=== PATIENT | male | born 1965 | race Two or more races ===

== ENCOUNTER 2017-01-24 19:41 | Inpatient (IN) | payer OTHER ==
[~2017-01-24] VITALS: Ht 170.2 cm; Wt 86.2 kg
[~2017-01-24 19:41] MED LIST: ASPIR 8181 MG ORAL; ATORVASTATIN CA10 MG ORAL; BRILINTA90 MG PO
[2017-01-24 21:10] VITALS: BP 113/72
[2017-01-24 22:13] LABS: EOSINOPHILS % (AUTO) 0.5 % (0.0-3.0); LYMPHOCYTES % (AUTO) 11.8 % (20.0-45.0); MEAN CORPUSCULAR HEMOGLOBIN 28.5 PG (27.0-31.0); MEAN CORPUSCULAR HGB CONC 32.4 G/DL (32.0-36.0); MEAN CORPUSCULAR VOLUME 88 FL (80-99); MEAN PLATELET VOLUME 6.8 FL (6.5-10.1); MONOCYTES % (AUTO) 5.1 % (1.0-10.0); NEUTROPHILS % (AUTO) 81.6 % (45.0-75.0); PLATELET COUNT 286 K/UL (150-450); RED BLOOD COUNT 4.32 M/UL (4.70-6.10); RED CELL DISTRIBUTION WIDTH 12.2 % (11.6-14.8); WHITE BLOOD COUNT 11.4 K/UL (4.8-10.8)
[2017-01-24 22:25] VITALS: BP 121/69
[2017-01-24 22:26] VITALS: BP 116/74
[2017-01-24 22:27] VITALS: BP 113/71
[2017-01-24 22:28] LABS: PROTHROMBIN TIME 10.4 SEC (9.30-11.50)
[2017-01-24 22:40] LABS: TROPONIN I < 0.30 ng/mL (<=0.30)
[2017-01-24 22:42] LABS: ALANINE AMINOTRANSFERASE 21 U/L (3-41); ALBUMIN/GLOBULIN RATIO 1.4 (1.0-2.7); ANION GAP 16 (5-15); ASPARTATE AMINO TRANSFERASE 18 U/L (5-40); CARBON DIOXIDE 23 mEQ/L (20-30); CHLORIDE 98 mEQ/L (98-107); GLOMERULAR FILTRATION RATE > 60 mL/min (>60); HEMOLYSIS 10; POTASSIUM 4.1 mEQ/L (3.4-4.9); SODIUM 137 mEQ/L (135-145); TOTAL PROTEIN 6.9 g/dL (6.6-8.7)
[2017-01-24 22:53] LABS: CKMB < 1.5 ng/mL (< 6.7)
--- NOTE | 2017-01-24 23:25 | Emergency Room Report ---
History of Present Illness General Chief Complaint: Generalized Weakness Source: Patient Present Illness HPI 51-year-old male presents ED for evaluation. Per EMS patient came from ENT office after having cauterization for nosebleed. Patient received anesthesia during the procedure. Patient felt dizzy and hypotensive after. Patient given IV fluids. Upon arrival patient feels dizzy but is feeling better. Denies chest pain shortness of breath. Denies nausea or vomiting. Patient states he had coronary blockage in December and had stents placed. Patient is on Brilinta for stents. No other aggravating or relieving factors. Denies any other associated symptom Allergies: Coded Allergies: SULFA (SULFONAMIDE ANTIBIOTICS) (Verified Allergy, Unknown, 01/24/17) Patient History Past Medical History: CAD Past Surgical History: none Pertinent Family History: none Social History: Denies: alcohol use, drug use, smoking Immunizations: UTD Reviewed Nursing Documentation: PMH: Agreed, PSxH: Agreed Nursing Documentation-PMH Hx Gastrointestinal Problems: Yes - Diverticulitis Review of Systems All Other Systems: negative except mentioned in HPI Physical Exam Vital Signs Date Time Temp Pulse Resp B/P Pulse Ox O2 Delivery O2 Flow Rate FiO2 01/24/17 19:32 98.8 83 18 113/72 97 Room Air Sp02 EP Interpretation: reviewed, normal General Appearance: no apparent distress, alert, GCS 15, non-toxic Head: normocephalic, atraumatic Eyes: bilateral eye PERRL, bilateral eye normal inspection ENT: hearing grossly normal, normal pharynx, no angioedema, normal voice Neck: full range of motion, supple/symm/no masses Respiratory: chest non-tender, lungs clear, normal breath sounds, speaking full sentences Cardiovascular #1: regular rate, rhythm, no edema Cardiovascular #2: 2+ carotid (R), 2+ carotid (L), 2+ radial (R), 2+ radial (L) , 2+ dorsalis pedis (R), 2+ dorsalis pedis (L) Gastrointestinal: normal bowel sounds, non tender, soft, non-distended, no guarding, no rebound Rectal: deferred Genitourinary: normal inspection, no CVA tenderness Musculoskeletal: back normal, gait/station normal, normal range of motion, non- tender Neurologic: alert, oriented x3, responsive, motor strength/tone normal, sensory intact, speech normal Psychiatric: judgement/insight normal, memory normal, mood/affect normal, no suicidal/homicidal ideation Reflexes: 3+ bicep (R), 3+ bicep (L), 3+ tricep (R), 3+ tricep (L), 3+ knee (R) , 3+ knee (L) Skin: normal color, no rash, warm/dry, well hydrated Lymphatic: no adenopathy Medical Decision Making Diagnostic Impression: Primary Impression: Dizziness Additional Impression: Hypotension Qualified Codes: I95.9 - Hypotension, unspecified ER Course 51 yo M presents to ED c/o dizziness, hypotension after nasal cauterization under anesthesia differential - dehydration, anesthesia adverse reaction, arrythmia, patient placed on stretcher. after initial history and physical , I ordered labs, EKG, IVFs labs - no leukocytosis, hb/hct stable, electrolytes ok, trop negative, coags normal EKG - NSR, no acute ischemic changes given patient's cardiac history with stent placement, I encouraged patient he should be admitted for further evaluation. patient agrees diagnsis - dizziness, hypotension admitted to tele in serious condition Labs Test 01/24/17 21:15 White Blood Count 11.4 K/UL (4.8-10.8) Red Blood Count 4.32 M/UL (4.70-6.10) Hemoglobin 12.3 G/DL (14.2-18.0) Hematocrit 38.1 % (42.0-52.0) Mean Corpuscular Volume 88 FL (80-99) Mean Corpuscular Hemoglobin 28.5 PG (27.0-31.0) Mean Corpuscular Hemoglobin Concent 32.4 G/DL (32.0-36.0) Red Cell Distribution Width 12.2 % (11.6-14.8) Platelet Count 286 K/UL (150-450) Mean Platelet Volume 6.8 FL (6.5-10.1) Neutrophils (%) (Auto) 81.6 % (45.0-75.0) Lymphocytes (%) (Auto) 11.8 % (20.0-45.0) Monocytes (%) (Auto) 5.1 % (1.0-10.0) Eosinophils (%) (Auto) 0.5 % (0.0-3.0) Basophils (%) (Auto) 1.0 % (0.0-2.0) Prothrombin Time 10.4 SEC (9.30-11.50) Prothromb Time International Ratio 1.0 (0.9-1.1) Activated Partial Thromboplast Time 24 SEC (23-33) Sodium Level 137 mEQ/L (135-145) Potassium Level 4.1 mEQ/L (3.4-4.9) Chloride Level 98 mEQ/L (98-107) Carbon Dioxide Level 23 mEQ/L (20-30) Anion Gap 16 (5-15) Blood Urea Nitrogen 22 mg/dL (7-23) Creatinine 1.0 mg/dL (0.7-1.2) Estimat Glomerular Filtration Rate > 60 mL/min (>60) Glucose Level 125 mg/dL (74-106) Calcium Level 9.0 mg/dL (8.6-10.2) Total Bilirubin 0.5 mg/dL (0.0-1.2) Aspartate Amino Transf (AST/SGOT) 18 U/L (5-40) Alanine Aminotransferase (ALT/SGPT) 21 U/L (3-41) Alkaline Phosphatase 87 U/L (40-129) Total Creatine Kinase 81 U/L (38-174) Creatine Kinase MB < 1.5 ng/mL (< 6.7) Creatine Kinase MB Relative Index Troponin I < 0.30 ng/mL (<=0.30) Pro-B-Type Natriuretic Peptide 9 pg/mL (0-125) Total Protein 6.9 g/dL (6.6-8.7) Albumin 4.1 g/dL (3.5-5.2) Globulin 2.8 g/dL Albumin/Globulin Ratio 1.4 (1.0-2.7) EKG Diagnostic Results Rate: normal Rhythm: NSR ST Segments: no acute changes ASA given to the pt in ED: No Rhythm Strip Diag. Results EP Interpretation: yes Rhythm: NSR, no PVC's, no ectopy Chest X-Ray Diagnostic Results EP Interpretation: Yes Findings: no consolidation, no effusion, no pneumothorax, no acute cardiopulmonary disease Number of Views: 1 Last Vital Signs Date Time Temp Pulse Resp B/P Pulse Ox O2 Delivery O2 Flow Rate FiO2 01/24/17 19:32 98.8 83 18 113/72 97 Room Air Status: improved Disposition: ADMITTED INPATIENT Condition: Serious TERESA PAYNE M.D. 7, 2017 23:25
[2017-01-25] VITALS (7 sets, daily range): BP systolic 109–131; BP diastolic 58–77
[2017-01-25] MEDS ORDERED: LIPITOR80 MG ORAL (02:30)
[2017-01-25] MEDS ORDERED: Miralax 17gm pkt ORAL PRN (05:15)
[2017-01-25] MEDS ORDERED: Morphine Sulfate 2mg/ml Inj IVP PRN (05:15)
[2017-01-25] MEDS ORDERED: LORazepam Inj 2mg/ml 1ml IV PRN (05:15)
[2017-01-25] MEDS ORDERED: Zolpidem 5mg tab ORAL PRN (05:15)
[2017-01-25] MEDS ORDERED: Mylanta II UD 30ml ORAL PRN (05:15)
--- NOTE | 2017-01-25 12:57 | Diagnostic Imaging Report ---
Indication: Chest Pain Comparison: None A single view chest radiograph was obtained. Findings: Cardiomediastinal appearance is within normal limits for age. Pulmonary vascularity is appropriate. The diaphragmatic contour is smooth and costophrenic angles are sharp. No pleural effusions are identified. The bones are unremarkable. Impression: No acute findings
--- NOTE | 2017-01-25 13:27 | Consultation ---
History of Present Illness General Date patient seen: Jan 25, 2017 Chief Complaint: Generalized Weakness Reason for Consultation: Dr Coronado Present Illness HPI 51-year-old male with recent stent placement in [place] traveling for business to [place], started have nose bleeding. He is taking Brilinta after his stent. He went to an ENT office where his nose was cauterized afterwards he felt dizzy and hypotensive after. Patient given IV fluids. Upon arrival in ER he was dizzy but is feeling better. Denies chest pain shortness of breath. Denies nausea or vomiting. He is admitted to telemetry for further work up. Allergies: Coded Allergies: SULFA (SULFONAMIDE ANTIBIOTICS) (Verified Allergy, Unknown, 01/24/17) Medication History Scheduled Aspirin* (Aspir 81*), 81 MG ORAL DAILY, (Reported) Atorvastatin (Lipitor), 80 MG ORAL BEDTIME, (Reported) Ticagrelor* (Brilinta*), 90 MG PO BID, (Reported) Discontinued Medications Atorvastatin Calcium* (Lipitor*), 10 MG ORAL BEDTIME, (Reported) Discontinued Reason: Pt stopped taking med Patient History Healthcare decision maker pt alert and oriented Resuscitation status Full Code Advanced Directive on File No Past Medical/Surgical History Past Medical/Surgical History: (1) CAD (coronary artery disease) (2) Stented coronary artery (3) Dizziness (4) Hypotension Review of Systems All Other Systems: negative except mentioned in HPI Physical Exam General Appearance: WD/WN Lines, tubes and drains: peripheral HEENT: normocephalic, atraumatic Neck: non-tender, normal alignment Respiratory/Chest: chest wall non-tender, lungs clear Cardiovascular/Chest: normal peripheral pulses, normal rate Abdomen: normal bowel sounds, non tender Genitourinary/Rectal: normal prostate exam Extremities: normal range of motion, non-tender Skin Exam: normal pigmentation 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, no motor/sensory deficits Last 24 Hour Vital Signs Date Time Temp Pulse Resp B/P Pulse Ox O2 Delivery O2 Flow Rate FiO2 01/25/17 11:48 97.9 83 18 109/72 98 Room Air 01/25/17 10:36 88 01/25/17 08:12 97.2 86 18 119/77 96 Room Air 01/25/17 06:17 74 01/25/17 04:18 98.8 88 19 109/58 96 Nasal Cannula 2.0 01/25/17 02:00 69 01/25/17 01:30 97.3 69 18 117/68 100 Room Air 01/25/17 01:17 98.8 78 18 131/77 97 Room Air 01/25/17 01:04 98.8 78 18 131/77 97 Room Air 01/24/17 22:27 98.8 88 17 113/71 97 Room Air 01/24/17 22:26 98.8 91 18 116/74 97 Room Air 01/24/17 22:25 98.8 76 15 121/69 97 Room Air 01/24/17 21:10 98.8 88 18 113/72 97 Room Air 01/24/17 19:32 98.8 83 18 113/72 97 Room Air Intake and Output 01/24/17 01/25/17 19:00 07:00 Intake Total 500 ml Output Total 400 ml Balance 100 ml Intake Oral 0 ml IV Total 500 ml Output Urine Total 400 ml # Bowel Movements 1 Laboratory Tests Test 01/24/17 21:15 White Blood Count 11.4 K/UL (4.8-10.8) H Red Blood Count 4.32 M/UL (4.70-6.10) L Hemoglobin 12.3 G/DL (14.2-18.0) L Hematocrit 38.1 % (42.0-52.0) L Mean Corpuscular Volume 88 FL (80-99) Mean Corpuscular Hemoglobin 28.5 PG (27.0-31.0) Mean Corpuscular Hemoglobin Concent 32.4 G/DL (32.0-36.0) Red Cell Distribution Width 12.2 % (11.6-14.8) Platelet Count 286 K/UL (150-450) Mean Platelet Volume 6.8 FL (6.5-10.1) Neutrophils (%) (Auto) 81.6 % (45.0-75.0) H Lymphocytes (%) (Auto) 11.8 % (20.0-45.0) L Monocytes (%) (Auto) 5.1 % (1.0-10.0) Eosinophils (%) (Auto) 0.5 % (0.0-3.0) Basophils (%) (Auto) 1.0 % (0.0-2.0) Prothrombin Time 10.4 SEC (9.30-11.50) Prothromb Time International Ratio 1.0 (0.9-1.1) Activated Partial Thromboplast Time 24 SEC (23-33) Sodium Level 137 mEQ/L (135-145) Potassium Level 4.1 mEQ/L (3.4-4.9) Chloride Level 98 mEQ/L (98-107) Carbon Dioxide Level 23 mEQ/L (20-30) Anion Gap 16 (5-15) H Blood Urea Nitrogen 22 mg/dL (7-23) Creatinine 1.0 mg/dL (0.7-1.2) Estimat Glomerular Filtration Rate > 60 mL/min (>60) Glucose Level 125 mg/dL (74-106) H Calcium Level 9.0 mg/dL (8.6-10.2) Total Bilirubin 0.5 mg/dL (0.0-1.2) Aspartate Amino Transf (AST/SGOT) 18 U/L (5-40) Alanine Aminotransferase (ALT/SGPT) 21 U/L (3-41) Alkaline Phosphatase 87 U/L (40-129) Total Creatine Kinase 81 U/L (38-174) Creatine Kinase MB < 1.5 ng/mL (< 6.7) Creatine Kinase MB Relative Index Troponin I < 0.30 ng/mL (<=0.30) Pro-B-Type Natriuretic Peptide 9 pg/mL (0-125) Total Protein 6.9 g/dL (6.6-8.7) Albumin 4.1 g/dL (3.5-5.2) Globulin 2.8 g/dL Albumin/Globulin Ratio 1.4 (1.0-2.7) Height (Feet): 5 Height (Inches): 7.00 Weight (Pounds): 190 Medications Current Medications Medications (Trade) Dose Ordered Sig/Sharri Route PRN Reason Start Time Stop Time Status Last Admin Dose Admin Acetaminophen (Tylenol) 650 mg Q4H PRN ORAL fever 01/25/17 05:15 02/24/17 05:14 Al Hydroxide/Mg Hydroxide (Mylanta II) 30 ml Q6H PRN ORAL dyspepsia 01/25/17 05:15 02/24/17 05:14 Dextrose (Dextrose 50%) STAT PRN IV Hypoglycemia 01/25/17 05:15 02/24/17 05:14 Lorazepam (Ativan 2mg/ml 1ml) 0.5 mg Q4H PRN IV For Anxiety 01/25/17 05:15 02/01/17 05:14 Morphine Sulfate (Morphine Sulfate) 1 mg Q4H PRN IVP For Pain 01/25/17 05:15 02/01/17 05:14 Ondansetron HCl (Zofran) 4 mg Q6H PRN IVP Nausea & Vomiting 01/25/17 05:15 02/24/17 05:14 Patient Own Medication (Patient's Own Med) 1 ea EVERY 12 HOURS ORAL 01/25/17 13:15 02/24/17 13:14 UNV Polyethylene Glycol (Miralax) 17 gm HSPRN PRN ORAL Constipation 01/25/17 05:15 02/24/17 05:14 Zolpidem Tartrate (Ambien) 5 mg HSPRN PRN ORAL Insomnia 01/25/17 05:15 02/24/17 05:14 Assessment/Plan Problem List: (1) Hypotension ICD Codes: I95.9 - Hypotension, unspecified SNOMED: 62873022, 942131088 Qualifiers: Qualified Codes: I95.9 - Hypotension, unspecified (2) Epistaxis ICD Codes: R04.0 - Epistaxis SNOMED: 47257065, 315223514 (3) Stented coronary artery ICD Codes: Z95.5 - Presence of coronary angioplasty implant and graft SNOMED: 99722131, 506936489 (4) CAD (coronary artery disease) ICD Codes: I25.10 - Atherosclerotic heart disease of [place] coronary artery without angina pectoris SNOMED: 38884047 (5) Dizziness ICD Codes: R42 - Dizziness and giddiness SNOMED: 635356535, 405152051 Assessment/Plan IV fluids restart Brilinta cardiology to see TOMMY Tipton Jan 25, 2017 13:27
--- NOTE | 2017-01-25 14:47 | General Progress Note ---
Progress Note Progress Note Note dictated -OK to fly and instructed with son present, how to apply antibiotic ointment to inside of nose next 10 days-F/U with ENT when back home. KSENIA GUILLORY Jan 25, 2017 14:47
--- NOTE | 2017-01-25 14:53 | Cardiac Electrophysiology PN ---
Subjective Subjective [id number] Objective Last 24 Hour Vital Signs Date Time Temp Pulse Resp B/P Pulse Ox O2 Delivery O2 Flow Rate FiO2 01/25/17 12:00 95 01/25/17 11:48 97.9 83 18 109/72 98 Room Air 01/25/17 10:36 88 01/25/17 08:12 97.2 86 18 119/77 96 Room Air 01/25/17 06:17 74 01/25/17 04:18 98.8 88 19 109/58 96 Nasal Cannula 2.0 01/25/17 02:00 69 01/25/17 01:30 97.3 69 18 117/68 100 Room Air 01/25/17 01:17 98.8 78 18 131/77 97 Room Air 01/25/17 01:04 98.8 78 18 131/77 97 Room Air 01/24/17 22:27 98.8 88 17 113/71 97 Room Air 01/24/17 22:26 98.8 91 18 116/74 97 Room Air 01/24/17 22:25 98.8 76 15 121/69 97 Room Air 01/24/17 21:10 98.8 88 18 113/72 97 Room Air 01/24/17 19:32 98.8 83 18 113/72 97 Room Air Intake and Output 01/24/17 01/25/17 19:00 07:00 Intake Total 500 ml Output Total 400 ml Balance 100 ml Intake Oral 0 ml IV Total 500 ml Output Urine Total 400 ml # Bowel Movements 1 Laboratory Tests Test 01/24/17 21:15 White Blood Count 11.4 K/UL (4.8-10.8) H Red Blood Count 4.32 M/UL (4.70-6.10) L Hemoglobin 12.3 G/DL (14.2-18.0) L Hematocrit 38.1 % (42.0-52.0) L Mean Corpuscular Volume 88 FL (80-99) Mean Corpuscular Hemoglobin 28.5 PG (27.0-31.0) Mean Corpuscular Hemoglobin Concent 32.4 G/DL (32.0-36.0) Red Cell Distribution Width 12.2 % (11.6-14.8) Platelet Count 286 K/UL (150-450) Mean Platelet Volume 6.8 FL (6.5-10.1) Neutrophils (%) (Auto) 81.6 % (45.0-75.0) H Lymphocytes (%) (Auto) 11.8 % (20.0-45.0) L Monocytes (%) (Auto) 5.1 % (1.0-10.0) Eosinophils (%) (Auto) 0.5 % (0.0-3.0) Basophils (%) (Auto) 1.0 % (0.0-2.0) Prothrombin Time 10.4 SEC (9.30-11.50) Prothromb Time International Ratio 1.0 (0.9-1.1) Activated Partial Thromboplast Time 24 SEC (23-33) Sodium Level 137 mEQ/L (135-145) Potassium Level 4.1 mEQ/L (3.4-4.9) Chloride Level 98 mEQ/L (98-107) Carbon Dioxide Level 23 mEQ/L (20-30) Anion Gap 16 (5-15) H Blood Urea Nitrogen 22 mg/dL (7-23) Creatinine 1.0 mg/dL (0.7-1.2) Estimat Glomerular Filtration Rate > 60 mL/min (>60) Glucose Level 125 mg/dL (74-106) H Calcium Level 9.0 mg/dL (8.6-10.2) Total Bilirubin 0.5 mg/dL (0.0-1.2) Aspartate Amino Transf (AST/SGOT) 18 U/L (5-40) Alanine Aminotransferase (ALT/SGPT) 21 U/L (3-41) Alkaline Phosphatase 87 U/L (40-129) Total Creatine Kinase 81 U/L (38-174) Creatine Kinase MB < 1.5 ng/mL (< 6.7) Creatine Kinase MB Relative Index Troponin I < 0.30 ng/mL (<=0.30) Pro-B-Type Natriuretic Peptide 9 pg/mL (0-125) Total Protein 6.9 g/dL (6.6-8.7) Albumin 4.1 g/dL (3.5-5.2) Globulin 2.8 g/dL Albumin/Globulin Ratio 1.4 (1.0-2.7) NINO CLAIRE Jan 25, 2017 14:53
--- NOTE | 2017-01-25 15:32 | Cardiology Report ---
APPROVED REPORT EKG Measurement Heart [id number] Normal sinus rhythm Normal ECG
[2017-01-25] MEDS: Aspirin EC 81mg tab ORAL SCH (15:49)
[2017-01-25] MEDS: BRILINTA 90 MG ORAL SCH ×2 (15:50→21:16)
[2017-01-25] MEDS ORDERED: NS 275ml ONE (17:34)
--- NOTE | 2017-01-25 19:58 | History and Physical Report ---
DATE OF ADMISSION: 01/24/2017 HISTORY OF PRESENT ILLNESS: The patient is a travelling businessman, originally from [place] when he came here, he recently had a stent x3 placed in [place] in December, but the patient was having recurrent nosebleed when he was seen in a hotel, and has an history of deviated septum. The patient went to the urgent care and ENT office, had a vasovagal reaction to the ENT's cauterization and had hypotension and ENT recommended that the patient come to the hospital for observation and inpatient in lieu of recurrent nosebleed, vasovagal reaction, hypotension to the procedure done by the ENT in his office. The patient has a history of heart disease and stent x3 recently. The patient had near syncopal episode as mentioned and initial troponin is negative. The patient is admitted for hypotension. MEDICATIONS: Lipitor, Brilinta, and aspirin. ALLERGIES: Sulfa. FAMILY HISTORY: SOCIAL HISTORY: Denies drugs and alcohol abuse. Denies smoking. Lives in [place]. REVIEW OF SYSTEMS: HEENT: Denies headache. Respiratory: Denies shortness of breath. Denies cough. Cardiovascular: Denies chest pain. Gastrointestinal: Denies nausea, vomiting, or diarrhea. Extremities: Denies pain. Central Nervous System: Denies change in vision or speech pattern. He does have recurrent nosebleed for the past couple of days. PHYSICAL EXAMINATION: VITAL SIGNS: Temperature 98.8 degrees, pulse 78, and blood pressure 131/77. HEENT: PERRLA. NECK: Supple. No lymphadenopathy. CHEST: Clear to auscultation. GASTROINTESTINAL: Soft, nontender, and nondistended. No organomegaly. EXTREMITIES: No edema. NEUROLOGIC: Moves all four extremities. Sensory intact to light touch. Reflexes are equal on both sides. LABORATORY AND DIAGNOSTIC DATA: EKG sinus rhythm. Troponin is negative. WBC is 11.4, hemoglobin 12.3 and platelets 286,000. Sodium 137, potassium 4.1, BUN of 22, creatinine of 1, and glucose of 125. ASSESSMENT AND PLAN: 1. Recurrent nosebleed. 2. Coronary artery disease status post stent x3. I have asked Dr. Farmer, Dr. Aguilar, Dr. Galvan, Dr. Bell and Dr. Polanco to see the patient for the leukocytosis and mild dehydration, heart disease, and medication adjustment in lieu of recurrent nosebleed. Dr. Cole Coronado has been made aware to see this patient in consult. Luanne Coronado M.D. DR: DIMITRI JOB#: [id number] CC:
[2017-01-25] MEDS ORDERED: Atorvastatin 80mg tab ORAL SCH (21:00)
--- NOTE | 2017-01-25 21:38 | Consultation ---
DATE OF CONSULTATION: 01/25/2017 CARDIOLOGY CONSULTATION CONSULTING PHYSICIAN: Aryan Farmer M.D. REFERRING PHYSICIAN: Luanne Coronado M.D. HISTORY OF PRESENT ILLNESS: The patient is a very pleasant 51-year-old gentleman with history of hypertension and coronary artery disease, who underwent three stents placed in his coronaries on 01/04/2017 in [place]. The patient is on a business trip to [place] and started having nosebleed. The patient went to an ENT office and his nose was cauterized, but after that, he felt very dizzy and hypotensive. The patient received intravenous fluids and upon arrival in the emergency room, the patient was feeling better and was felt dizzy. The patient did not have any chest pain or shortness of breath, or nausea or vomiting, The patient was admitted to the telemetry and a Cardiology consultation was obtained for further evaluation and management. REVIEW OF SYSTEMS: His review of systems was performed and was negative other than what was mentioned in the history of present illness. PAST MEDICAL HISTORY: 1. Hypertension. 2. myocardial infarction. 3. Status post three stents placed as mentioned above. 4. Hyperlipidemia. MEDICATIONS: At home include: 1. Aspirin 81 mg daily. 2. Lipitor 80 mg daily. 3. Brilinta 90 mg twice a day. SOCIAL HISTORY: He lives on the [facility]. Does not smoke or drink alcohol. FAMILY HISTORY: Noncontributory. PHYSICAL EXAMINATION: VITAL SIGNS: Blood pressure is 109/72, pulse 83, respirations 18, and temperature 97.9. HEAD AND NECK: Showed no JVD. LUNGS: Clear. CARDIOVASCULAR: Shows regular S1 and S2 with no gallop, rub, or murmur. ABDOMEN: Soft. EXTREMITIES: No pitting edema. LABORATORY AND DIAGNOSTIC DATA: EKG showed normal sinus rhythm, normal electrocardiogram. His labs showed a white count of 11.4, hemoglobin 12.2, hematocrit 38.1, and platelet count of 286,000. Sodium 137, potassium 4.1, BUN of 20, creatinine 1, and glucose of 125. Troponin is negative. INR is 1. ASSESSMENT AND PLAN: 1. Coronary artery disease with status post three stents about three weeks ago. Stents are drug-eluting stents and we have to continue both aspirin as well as Brilinta. We will resume the patient's Lipitor as well. His EKG showed no significant EKG is completely normal. We will get an echocardiogram for further evaluation and management. 2. Nosebleed, likely due to combination of aspirin and Brilinta. Further evaluation by ear, nose, and throat. Both aspirin and Brilinta cannot be stopped. 3. Hyperlipidemia. We will resume Lipitor. Thank you very much, Dr. Coronado, for allowing me to participate in the care of this patient. Please do not hesitate to contact me for any questions regarding my evaluation. Aryan Farmer M.D. DR: RHONDA JOB#: [id number] CC:
--- NOTE | 2017-01-25 21:51 | Consultation ---
Consult Note Consult Note NEUROLOGY CONSULTATION: Full note dictated #[id number] 51 y/o, RH, EIM with PH of dyslipidemia, surgery for diverticulitis and prior VV events. Recently was having chest discomfort and and was worked up for it and needed PCI with stents. Has been on Brilinta and on 01/24/17 started to have a nose bleed. After the bleeder was cauterized he had a near syncopal event. Feels normal now. NEUROLOGIC EXAM: Normal IMPRESSION: Near syncopal event due to VV response. REC: No further neurologic intervention needed. Yasir Aguilar M.D., M.S.P.[place]. YASIR AGUILAR Jan 25, 2017 21:50
--- NOTE | 2017-01-25 21:58 | Consultation ---
DATE OF CONSULTATION: 01/25/2017 REQUESTING PHYSICIAN: Luanne Coronado M.D. CONSULTING PHYSICIAN: Cliff Galvan M.D. INDICATION FOR CONSULTATION: A 51-year-old male who has had epistaxis in the last few days since flying in from [place] via his right nostril. He ultimately had it cauterized yesterday at a private physician's office, but ended up having dizzy spells and syncopal issues. He was then admitted to the hospital. For that reason, I have asked to check his nose. An important recent healthcare formation is a few weeks ago, he had a cardiac stent placed and was anticoagulated. His INR was 1.0 yesterday. PAST MEDICAL HISTORY: Significant for cardiovascular disease and the stented coronary artery as noted. PHYSICAL EXAMINATION: Nose has been dry crust on the right. The left is perfectly normal. Mouth was normal. Ears, positive light reflex. Normal canals. He does have a bit of mildly elevated white count on exam, reviewing his chart is 11. ASSESSMENT: Epistaxis most probably due to dryness. PLAN: With his son in the room for which I spent about 35 minutes with the patient and his son. We described how to use antibiotic ointment inside his nose twice a day, especially with flying, but he should do that for at least the next 10 days. When he goes home he should have his nose checked. Finally, he had to be cleaned out of his nose and I said no leave it the way it is. He should be okay, but when he gets home at the [place] he should get it checked. We also discussed if he does start bleeding had to hold his nose from the outside not to stick anything inside and then pull it out. Thank you very much for asking my opinion in the care and treatment of this patient. Cliff Galvan M.D. : Ralph JOB#: [id number] CC:
--- NOTE | 2017-01-25 23:58 | Consultation ---
DATE OF CONSULTATION: 01/25/2017 NEUROLOGICAL CONSULTATION: CONSULTING PHYSICIAN: Ronnie Aguilar M.D. REQUESTING PHYSICIAN: Luanne Coronado M.D. HISTORY OF PRESENT ILLNESS: The patient is a 51-year-old right-handed [place], who has a past history of dyslipidemia, surgery for diverticulitis, and prior vasovagal event. In December 2016, he was having some chest discomfort. As a result of that, he went to an urgent care, where an EKG was done, was relatively benign. He however was then sent to our hospital for a cardiac catheterization and was found to have significant coronary artery disease for which he needed a percutaneous intervention and stent placement. He has been on Brilinta since then. On 01/24/2017, he started to have a nosebleed. The nosebleed was taken care of at an urgent care with minimal decrease in the bleeding but the bleeding continued and as a result of that, he had to go to an ENT doctor and the bleeder was cauterized. Just after the cauterization, he felt dizzy and lightheaded and then almost passed out. He then however had to go to the bathroom right away and when he had to sit up erect in the toilet, he again felt quite unwell. As a result of this prolonged near syncopal event, he was sent to the [facility] Emergency Room and has since been admitted. This consultation was requested to evaluate the patient from neurological point of view for his near syncopal event. As per the patient, he has not noticed any weakness on one side or the other, numbness on one side or the other, problems with speech, problems with language, problems with vision, or problems with his memory. At this point in time, he feels pretty much back to his normal self. PAST MEDICAL HISTORY: Significant for dyslipidemia, diverticulitis, and surgery for diverticular disease, prior vasovagal events, and recent coronary artery disease for which he needed a percutaneous intervention and stent placement, following which he has been on Brilinta. PRESENT MEDICATIONS: Include atorvastatin, aspirin 81 mg daily, Brilinta, Tylenol p.r.n., morphine p.r.n., MiraLAX p.r.n., Zofran p.r.n., Ambien p.r.n., Ativan p.r.n., and Mylanta p.r.n. FAMILY HISTORY: Nothing significant with regards to neurological illness. PERSONAL HISTORY: Home. He lives with his in [place]. 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 HABITS: He denies use of alcohol, tobacco, or illicit drugs. PHYSICAL EXAMINATION: GENERAL: He is a well-developed, well-nourished, pleasant gentleman lying in bed, in no acute distress. VITAL SIGNS: Pulse is 82 per minute and regular, blood pressure 124/72 mmHg, respirations 20 per minute, and temperature 97.3 degrees Fahrenheit. HEENT AND NECK: Head is normocephalic and atraumatic. No neck rigidity was observed. EENT examination is benign. NEUROLOGICAL EXAMINATION: Mental status, he was alert and awake. He was oriented to person, place, and time. He was able to recall 3/3 words immediately after one minute and after three minutes on the second trial. He was able to remember presidents from through [employer]. His mathematical skills were good. His visuospatial function was preserved. Speech, he had no dysarthria. Language, he had no aphasia. CRANIAL NERVE II: The visual joshua were intact to confrontation testing. CRANIAL NERVES III, IV, AND : The external ocular movements were full and the pupil is 3 mm in diameter, equal, round, regular, and reactive to light. CRANIAL NERVES V: He had normal facial sensations and the temporalis, masseters, and pterygoids functions normally. CRANIAL NERVE VII: He had normal facial expressions and no facial asymmetry. CRANIAL NERVE VIII: He was able to hear well bilaterally and had no nystagmus. CRANIAL NERVE IX: The palate moved symmetrically on phonation. CRANIAL NERVE X: He had no hoarseness of voice. CRANIAL NERVE XI: The sternocleidomastoids and trapezii functions normally. CRANIAL NERVE XII: The tongue was in the midline without any fasciculations or atrophy. MOTOR SYSTEM: The tone was normal in all four extremities. Examination of muscle mass revealed no focal wasting. Examination of power revealed grade 5/5 power in all muscle groups tested. SENSORY EXAMINATION: He had intact sensation to pinprick, light touch, and graphesthesia. COORDINATION: He performed well on ageign-bj-pndu and tbxs-wo-kuel testing. Reflexes are 2+ and bilaterally symmetrical in biceps, triceps, brachioradialis, knees, 1+ at both ankles. The plantar responses were flexor bilaterally. STANCE: He stood up with contact guard. Gait, he walked well with contact guard. DIAGNOSTIC IMPRESSION: 1. The patient is a 51-year-old right-handed [place] gentleman who does have a past history of dyslipidemia, diverticulitis, and coronary artery disease, who recently had nosebleed and often when nosebleed was cauterized, had near syncopal event. At this point in time, he feels relatively well. 2. On neurological examination at this time, he does not demonstrate any focal or lateralizing findings and the neurological examination is relatively normal. 3. Laboratory data on admission revealed WBC count elevated to 11.4, hemoglobin down to 12.3, relatively normal chemistry panel, and an INR of 1.0. 4. The patient's history and neurological examination are most compatible with near syncopal episode, brought on by vasovagal reaction and in addition, mild anemia. RECOMMENDATIONS: 1. Agree with management thus far. 2. At this point in time, no further neurological intervention is recommended. Thank you for entrusting me with the care of this patient. Please do let me know if I can be of any further help. Ronnie Aguilar M.D. DR: Zaina JOB#: [id number] CC:
[2017-01-26 00:08] VITALS: BP 101/62
[2017-01-26 04:07] VITALS: BP 106/57
[2017-01-26 08:27] LABS: BASOPHILS % (AUTO) 0.8 % (0.0-2.0); EOSINOPHILS % (AUTO) 3.5 % (0.0-3.0); LYMPHOCYTES % (AUTO) 20.5 % (20.0-45.0); MEAN CORPUSCULAR HEMOGLOBIN 28.8 PG (27.0-31.0); MEAN CORPUSCULAR HGB CONC 33.4 G/DL (32.0-36.0); MEAN CORPUSCULAR VOLUME 86 FL (80-99); MEAN PLATELET VOLUME 7.3 FL (6.5-10.1); MONOCYTES % (AUTO) 9.2 % (1.0-10.0); PLATELET COUNT 308 K/UL (150-450); RED CELL DISTRIBUTION WIDTH 12.5 % (11.6-14.8)
[2017-01-26 08:40] VITALS: BP 107/73
[2017-01-26 08:40] LABS: TROPONIN I < 0.30 ng/mL (<=0.30)
[2017-01-26 08:51] LABS: ALANINE AMINOTRANSFERASE 18 U/L (3-41); ALBUMIN/GLOBULIN RATIO 1.8 (1.0-2.7); ANION GAP 16 (5-15); ASPARTATE AMINO TRANSFERASE 16 U/L (5-40); CALCIUM 9.3 mg/dL (8.6-10.2); CARBON DIOXIDE 26 mEQ/L (20-30); CHLORIDE 99 mEQ/L (98-107); CHOLESTEROL 119 mg/dL (< 200); CHOLESTEROL/HDL RATIO 3.1 (3.3-4.4); GLOMERULAR FILTRATION RATE > 60 mL/min (>60); HEMOLYSIS 2; LDL CHOLESTEROL (CALC.) 65 mg/dL (60-99); POTASSIUM 4.2 mEQ/L (3.4-4.9); SODIUM 141 mEQ/L (135-145); TOTAL PROTEIN 6.3 g/dL (6.6-8.7)
[2017-01-26] MEDS: Aspirin EC 81mg tab ORAL SCH (10:30)
[2017-01-26] MEDS: BRILINTA 90 MG ORAL SCH (10:30)
--- NOTE | 2017-01-26 11:09 | General Progress Note ---
Assessment/Plan Problem List: (1) Epistaxis ICD Codes: R04.0 - Epistaxis SNOMED: 31493484, 410754661 (2) CAD (coronary artery disease) ICD Codes: I25.10 - Atherosclerotic heart disease of [place] coronary artery without angina pectoris SNOMED: 44674210 (3) Hypotension ICD Codes: I95.9 - Hypotension, unspecified SNOMED: 96996804, 551599517 Qualifiers: Qualified Codes: I95.9 - Hypotension, unspecified (4) Dizziness ICD Codes: R42 - Dizziness and giddiness SNOMED: 567624038, 398235493 Status: progressing Assessment/Plan no nose bleed since yesterdaye ent cleared him for dc so dc today f/u w ent in 1 week Subjective ROS Limited/Unobtainable: Yes Allergies: Coded Allergies: SULFA (SULFONAMIDE ANTIBIOTICS) (Verified Allergy, Unknown, 01/24/17) Objective Last 24 Hour Vital Signs Date Time Temp Pulse Resp B/P Pulse Ox O2 Delivery O2 Flow Rate FiO2 01/26/17 08:40 97.7 96 18 107/73 97 Room Air 01/26/17 04:07 98.3 88 21 106/57 98 Room Air 01/26/17 04:00 75 01/26/17 00:08 97.8 85 20 101/62 94 Room Air 01/26/17 00:00 82 01/25/17 20:00 91 01/25/17 20:00 97.3 83 20 124/72 99 Room Air 01/25/17 16:37 97.7 92 18 116/67 97 Room Air 01/25/17 12:00 95 01/25/17 11:48 97.9 83 18 109/72 98 Room Air Intake and Output 01/25/17 01/26/17 19:00 07:00 Intake Total 480 ml Balance 480 ml Intake Oral 480 ml # Voids 3 6 Laboratory Tests 01/26/17 07:30: White Blood Count 8.0, Red Blood Count 4.20L, Hemoglobin 12.1L, Hematocrit 36.3L , Mean Corpuscular Volume 86, Mean Corpuscular Hemoglobin 28.8, Mean Corpuscular Hemoglobin Concent 33.4, Red Cell Distribution Width 12.5, Platelet Count 308, Mean Platelet Volume 7.3, Neutrophils (%) (Auto) 66.0, Lymphocytes (% ) (Auto) 20.5, Monocytes (%) (Auto) 9.2, Eosinophils (%) (Auto) 3.5H, Basophils (%) (Auto) 0.8, Sodium Level 141, Potassium Level 4.2, Chloride Level 99, Carbon Dioxide Level 26, Anion Gap 16H, Blood Urea Nitrogen 11, Creatinine 1.0, Estimat Glomerular Filtration Rate > 60, Glucose Level 93, Calcium Level 9.3, Total Bilirubin 0.6, Aspartate Amino Transf (AST/SGOT) 16, Alanine Aminotransferase (ALT/SGPT) 18, Alkaline Phosphatase 96, Troponin I < 0.30, Total Protein 6.3L, Albumin 4.1, Globulin 2.2, Albumin/Globulin Ratio 1.8, Triglycerides Level 79, Cholesterol Level 119, LDL Cholesterol 65, HDL Cholesterol 38, Cholesterol/HDL Ratio 3.1L, Thyroid Stimulating Hormone (TSH) 1.010 Height (Feet): 5 Height (Inches): 7.00 Weight (Pounds): 190 Neck: supple Cardiovascular: normal rate Respiratory/Chest: lungs clear Luanne Coronado MD Jan 26, 2017 11:09
--- NOTE | 2017-01-26 22:13 | Pulmonology Progress Note ---
Assessment/Plan Problems: (1) Hypotension (2) Epistaxis (3) Stented coronary artery (4) CAD (coronary artery disease) (5) Dizziness Assessment/Plan Assessment/Plan IV fluids restart Brilinta cardiology to see echo Subjective ROS Limited/Unobtainable: Yes Constitutional: Reports: anorexia, fatigue Neurologic: Reports: confusion, headache, weakness Allergies: Coded Allergies: SULFA (SULFONAMIDE ANTIBIOTICS) (Verified Allergy, Unknown, 01/24/17) Objective Last 24 Hour Vital Signs Date Time Temp Pulse Resp B/P Pulse Ox O2 Delivery O2 Flow Rate FiO2 01/26/17 08:40 97.7 96 18 107/73 97 Room Air 01/26/17 08:00 91 01/26/17 04:07 98.3 88 21 106/57 98 Room Air 01/26/17 04:00 75 01/26/17 00:08 97.8 85 20 101/62 94 Room Air 01/26/17 00:00 82 Intake and Output 01/25/17 01/26/17 19:00 07:00 Intake Total 480 ml Balance 480 ml Intake Oral 480 ml # Voids 3 6 General Appearance: no acute distress HEENT: normocephalic, atraumatic, PERRL Respiratory/Chest: chest wall non-tender, decreased breath sounds, accessory muscle use Cardiovascular: normal peripheral pulses, normal rate, regular rhythm, no JVD Abdomen: normal bowel sounds, soft, non tender, no organomegaly, non distended Genitourinary: normal external genitalia Extremities: no cyanosis Skin: no rash, no lesions 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, no motor/sensory deficits Laboratory Tests 01/26/17 07:30: White Blood Count 8.0, Red Blood Count 4.20L, Hemoglobin 12.1L, Hematocrit 36.3L , Mean Corpuscular Volume 86, Mean Corpuscular Hemoglobin 28.8, Mean Corpuscular Hemoglobin Concent 33.4, Red Cell Distribution Width 12.5, Platelet Count 308, Mean Platelet Volume 7.3, Neutrophils (%) (Auto) 66.0, Lymphocytes (% ) (Auto) 20.5, Monocytes (%) (Auto) 9.2, Eosinophils (%) (Auto) 3.5H, Basophils (%) (Auto) 0.8, Sodium Level 141, Potassium Level 4.2, Chloride Level 99, Carbon Dioxide Level 26, Anion Gap 16H, Blood Urea Nitrogen 11, Creatinine 1.0, Estimat Glomerular Filtration Rate > 60, Glucose Level 93, Calcium Level 9.3, Total Bilirubin 0.6, Aspartate Amino Transf (AST/SGOT) 16, Alanine Aminotransferase (ALT/SGPT) 18, Alkaline Phosphatase 96, Troponin I < 0.30, Total Protein 6.3L, Albumin 4.1, Globulin 2.2, Albumin/Globulin Ratio 1.8, Triglycerides Level 79, Cholesterol Level 119, LDL Cholesterol 65, HDL Cholesterol 38, Cholesterol/HDL Ratio 3.1L, Thyroid Stimulating Hormone (TSH) 1.010 TOMMY JAVIER Jan 26, 2017 22:12
--- NOTE | 2017-01-27 12:56 | Discharge Summary ---
Discharge Summary Hospital Course Date of Admission Jan 24, 2017 at 23:40 Date of Discharge Jan 26, 2017 at 10:30 Admitting Diagnosis dizziness, hypotension HPI Wilman Bowers is a 51 year old male who was admitted on Jan 24, 2017 at 23:40 for Dizziness,Hypotension Hospital Course [id number] Discharge Discharge Disposition Patient was discharged to Home (01) Discharge Diagnoses: Paulina Goldberg NP Jan 27, 2017 12:56
--- NOTE | 2017-01-27 21:59 | Discharge Summary 2 SIG ---
DATE OF ADMISSION: 01/24/2017 DATE OF DISCHARGE: 01/26/2017 CONSULTANTS: 1. Kaya Lee M.D. 2. Ronnie Aguilar M.D. 3. Cliff Galvan M.D. 4. Aryan Farmer M.D. BRIEF HOSPITAL COURSE: The patient is a 51-year-old male who presented to ED via EMS. The patient came from ENT office after cauterization for nose bleed, then after developed dizziness and hypotension. He has a history of coronary artery disease with stent and is on Brilinta. He was admitted to telemetry and was followed by Dr. Farmer. He was continued on aspirin as well as Brilinta. EKG was normal. Dr. Galvan was consulted. The patient was advised antibiotic ointment inside the nose twice a day. Epistaxis was most probably due to dryness. Advised to have it checked when he gets back to [place]. He was seen by Dr. Aguilar on neurological exam. He did not demonstrate any focal or lateralizing findings and neurological examination was relatively normal. The patient with near syncopal episode, thought about by vasovagal reaction. He was eventually discharged home. Advised to follow up with ENT in a week as outpatient. FINAL DIAGNOSES: 1. Near syncope, possibly secondary to vasovagal effect. 2. Epistaxis. 3. Coronary artery disease, status post recent stent placement. 4. Hypotension, improved with IV hydration. 5. Dizziness. 6. Hyperlipidemia. Luanne Coronado M.D. I have been assigned to dictate discharge summary on this account and I was not involved in the patient's management. Paulina Goldberg N.P. DR: FRANCK JOB#: [id number] CC:
== END 2017-01-26 10:30 | disposition home or self-care (01) | DRG 316 ==
LOC: EDBD 19:41 → EMR 19:56 → EDBEDREQ 23:07 → 2E 23:40 → EDBEDREQ 01-25 00:24 → 2E 01-25 07:07
DX: I95.9 Hypotension, unspecified (principal); I10 Essential (primary) hypertension; R04.0 Epistaxis; R55 Syncope and collapse; I25.10 Atherosclerotic heart disease of native coronary artery without angina pectoris; Z95.5 Presence of coronary angioplasty implant and graft; R42 Dizziness and giddiness; E78.5 Hyperlipidemia, unspecified; Z88.2 Allergy status to sulfonamides; I25.2 Old myocardial infarction
CPT/HCPCS: 36415; 71010; 80053; 80061; 82550; 82553; 83880; 84443; 84484; 85025; 85610; 85730; 93005